=== PATIENT | female | born 1980 | race African-American/Black ===

== ENCOUNTER 2024-07-27 10:50 | Outpatient (CLI) | payer BC, SELFPAY ==
--- OUTSIDE RECORDS SUMMARY | 2024-07-27 11:27 | XMS_ITS | Clinical Summary ---
[facility] Organization [facility] Address [address] [facility] Attn: Epic Prelude ADT RUBENCONNIE CARLTON KANG [address] Care Team Providers Care Spreader Operator Automatic Name Role Phone Unavailable Primary Care Provider Unavailabl e Social History Tobacco Use Types Packs/Day Years Used Date Smoking Tobacco: Never Assessed Comments Unknown Sex and Gender Information Value Date Recorded Sex Assigned at Not on file Legal Sex Female 11:20 PM CDT Gender Identity Not on file Sexual Orientation Not on file Plan of Treatment Health Maintenance Due Date Last Done Comments DTAP/TDAP/TD VACCINES (1 - Tdap) 08/25/1998 HEPATITIS B VACCINES (1 of 3 - 19+ 3-dose series) 08/25/1998 HPV/Cotest (21-29) 08/25/2000 CERVICAL CANCER SCREENING 08/25/2009 HPV/Cotest (30-65) 08/25/2009 PAP SMEAR 08/25/2009 BREAST CANCER SCREENING 2019 INFLUENZA VACCINE (#1) 2023 HPV VACCINES Aged Out No longer eligi ble based on patient's age to complete this topic
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
--- OUTSIDE RECORDS SUMMARY | 2024-07-27 11:27 | XMS_ITS | Referral Summary ---
Author Organization [address] Address [facility] [place] [address] Care Team Providers [facility] [employer] Specialist Name Role Phone Christen Matias MD Unavailable [phone] Curt Zhou MD Primary Care Provider [phone] Encounters Date Type Department Care Team Description 07/22/2024 12:12 AM CDT - 07/22/2024 1:58 AM CDT Emergency [facility] Emergency Department [address] [place] [id number] Vaginal bleeding (Primary Dx); Acute UTI Discharge Disposition: Discharge to home or self care 05/10/2024 Telephone [facility] Allergy and Immunology [address] [place] [phone] Ac Peng 05/10/2024 11:00 AM EMISSIONS ENGINEER Office Visit [facility] Allergy and Immunology [address] [place] [phone] Ari Askew MD PhD Severe persistent asthma, unspecified whether complicated (HCC) (Primary Dx); Chronic urticaria; Angioedema, initial encounter; Allergic rhinitis due to animal hair and dander; Seasonal allergic rhinitis due to pollen; Allergic conjunctivitis of both eyes 05/09/2024 Telephone [facility] Allergy and Immunology [address] [place] [address] [address] [place] [phone] Huong Reveles from Last 3 Months Allergies Active Allergy Reactions Criticality Noted Date Comments Naproxen Swelling,Hives High Reaction: Swelling, Hives, Nsaids (Non-Steroidal Anti-Inflammatory Drug) Other (See comments) Low 05/11/2023 Penicillin Other (See comments) Low 05/11/2023 Penicillins Swelling,Hives High Reaction: Swelling, Hives, Shrimp Hives,Swelling Medium 05/10/2024 Medications ergocalciferol (VITAMIN D) 50,000 unit capsule Take 1 Capsule Every Week Active olopatadine 0.6 % spray,non-aeros ol Active olopatadine (PATADAY) 0.2 % ophthalmic solution Active cetirizine (ZyrTEC) 10 mg tablet Take 2 tablets (20 mg total) by mouth 2 (two) times a day Active famotidine (PEPCID) 40 mg tablet Take 1 tablet (40 mg total) by mouth 2 (two) times a day Active Sunosi 75 mg tablet TAKE 1 TABLET(75 MG) BY MOUTH TWICE DAILY WITH BREAKFAST AND LUNCH 60 tablet Active Additional Information Patient not taking.Reported on 05/10/2024 dextroamphetami ne-amphetamine XR (ADDERALL XR) 30 mg 24 hr capsule Take 1 capsule (30 mg total) by mouth every morning 30 capsule Active Additional Information Patient not taking.Reported on 05/10/2024 Xywav 0.5 gram/mL solutionIndicat ions:Primary narcolepsy without cataplexy Take 4.5 g by mouth 2 (two) times a day 270 mL Active EPINEPHrine (Auvi-Q) 0.3 mg/0.3 mL auto-injection syringeIndicati ons:Anaphylaxis Inject 0.3 mL (0.3 mg total) into the muscle as instructed as needed for anaphylaxis Call 911 after use. 2 each 1 Active fexofenadine (PAPI) 180 mg tablet Take 1 tablet (180 mg total) by mouth daily as needed (allergy symptoms) 30 tablet Active Additional Information Patient not taking.Reported on 05/10/2024 fluticasone propionate (FLONASE) 50 mcg/actuation nasal spray Administer 1 spray into each nostril 2 (two) times a day Active HYDROcodone-sabrina taminophen (NORCO) 5-325 mg per tabletIndicatio ns:Pain Take 1 tablet by mouth every 6 (six) hours as needed Active albuterol 2.5 mg /3 mL (0.083 %) nebulizer solutionIndicat ions:Severe persistent asthma with acute exacerbation (HCC),Severe persistent asthma, unspecified whether complicated (HCC) Take 3 mL (2.5 mg total) by nebulization every 4 (four) hours as needed for wheezing or shortness of breath 75 mL 11 024 2024 Active albuterol HFA (PROVENTIL HFA,VENTOLIN HFA,PROAIR HFA) 90 mcg/actuation inhaler Inhale 2 puffs every 6 (six) hours as needed for wheezing or shortness of breath 1 each 2 024 Active armodafiniL (NUVIGIL) 250 mg tabletIndicatio ns:Type 1 narcolepsy Take 1 tablet (250 mg total) by mouth daily 90 tablet 1 Active montelukast (SINGULAIR) 10 mg tabletIndicatio ns:Severe persistent asthma, unspecified whether complicated (HCC) Take 1 tablet (10 mg total) by mouth nightly 30 tablet 11 Active fluticasone-ume clidin-vilanter (Trelegy Ellipta) 100-62.5-25 mcg inhaler USE 1 INHALATION BY MOUTH DAILY 60 each 024 Active methylphenidate HCl (RITALIN) 20 mg tabletIndicatio ns:Primary narcolepsy without cataplexy Take 1.5 tablets (30 mg total) by mouth daily 45 tablet 025 Active Xolair 150 mg/mL syringeIndicati ons:Chronic urticaria,Sever e persistent asthma, unspecified whether complicated (HCC) INJECT 2 ML (300 MG TOTAL) UNDER THE SKIN EVERY 2 WEEKS 4 mL 9 025 Active cefdinir (OMNICEF) 300 mg capsule Take 1 capsule (300 mg total) by mouth 2 (two) times a day for 5 days 10 capsule 025 2024 Active ketorolac (TORADOL) 10 mg tablet Take 1 tablet (10 mg total) by mouth every 6 (six) hours as needed for pain 20 tablet 025 Active omalizumab (Xolair) 150 mg/mL syringeIndicati ons:Chronic urticaria,Sever e persistent asthma, unspecified whether complicated (HCC) Inject 2 mL (300 mg total) under the skin every 2 (two) weeks 4 mL 11 024 2024 Discontinued ketorolac (TORADOL) 10 mg tablet Take 1 tablet (10 mg total) by mouth every 6 (six) hours as needed for pain 20 tablet 024 2024 Discontinued(T herapy completed) celecoxib (CeleBREX) 200 mg capsule TAKE 1 CAPSULE BY MOUTH TWICE DAILY NEEDED FOR PAIN 024 2024 Discontinued(T herapy completed) methylphenidate HCl (RITALIN) 20 mg tabletIndicatio ns:Primary narcolepsy without cataplexy Take 1.5 tablets (30 mg total) by mouth daily 45 tablet 025 2024 Discontinued(R eorder) Active Problems Problem Noted Date Diagnosed Date Angio-edema 05/11/2023 Chronic urticaria 05/11/2023 UARS (upper airway resistance syndrome) 03/20/19 22 Allergy 04/03/2020 Asthma 04/03/2020 Hives of unknown origin 04/03/2020 Hypothyroidism 04/03/2020 Snoring 04/03/2020 Assessment & Plan (05/20/2023 9:08 AM CDT): The patient does snore and I will check a home sleep test per her request to evaluate for possible underlying JAZMÍN contributing to her daytime hypersomnia. Chest pain 07/23/2013 Overview (06/12/2016): CHEST PAIN NEC Syncope and collapse 07/23/2013 Overview (06/13/2016): SYNCOPE AND COLLAPSE Type 1 narcolepsy 07/23/2013 Overview (06/13/2016): NARCOLEPSY W CATAPLEXY Assessment & Plan (11/18/2023 10:59 AM CDT): The patient has type 1 narcolepsy which is well controlled with XyWav 4.5 g at bedtime and 4.5 g 4 hours later and then she is using Nuvigil 250 mg in the morning and 30 mg of Adderall at noon. She will follow up me annually. Assessment & Plan (05/28/2023 11:12 AM CDT): The patient only had 1 episode of cataplexy about 3 weeks ago when she became very angry. She will continue with Xywav 4.5 g at bedtime and 4.5 g 4 hours later in addition to Ritalin 30 mg at noon. I will stop the Sunosi and switch her to Nuvigil 250 mg p.o. q.a.m.. Assessment & Plan (11/19/2022 8:57 AM CDT): Patient will continue Xywav 4.5 g at bedtime and 4.5 g 4 hours later. The patient will continue with Ritalin 30 mg daily. The patient will continue Sunosi 75 mg in the morning and 75 mg at noon. 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 She continues on Xywav 4.5 g p.o. at bedtime and 2.5 hours later she repeats the 4.5 g dose. She is still using Sunosi 75 mg at 5:00 a.m. when she wakes up and 75 mg at 10:00 a.m.. She also uses Ritalin 30 mg at 1-2 p.m. and is able to function well during the remainder of her shift. She will follow-up with me in 6 months. Assessment & Plan (02/12/2022 2:37 PM EMISSIONS ENGINEER): The patient is no longer having cataplexy attacks. She continues to use his airway 4.5 g 2 times during the night. I will increase her Sunosi to 150 mg in the morning and hopefully, she can go back to taking her Ritalin at noon or 1:00 p.m.. She will follow-up with me in 3 months. Assessment & Plan (09/06/2021 12:10 PM CDT): The patient had been well controlled on XyREM, Nuvigil and Ritalin. She has been having problems with her blood pressure and I will switch her to XyWAV. She will continue on Nuvigil and Ritalin. She will follow-up here in 6 months. Palpitations 07/23/2013 Overview (06/13/2016): PALPITATIONS Obesity, diabetes, and hypertension syndrome 10/2012 Overview (06/13/2016): DYSMETABOLIC SYNDROME X Resolved Problems Problem Noted Date Diagnosed Date Resolved Date JAZMÍN (obstructive sleep apnea) 04/03/2020 11/19/2022 Sleep disorder 07/23/2013 11/19/2022 Overview (06/13/2016): SLEEP STAGE DYSFUNCTIONS Social History Tobacco Use Types Packs/Day Years Used Date Smoking Tobacco: Never Tobacco Cessation:Counseling Given: Not Answered AUDIT-C Answer Date Recorded Frequency of Alcohol Consumption Not on file 05/11/2023 Q2: How many drinks containi ng alcohol do you have on a typical day when you are drinking? Patient does not drink Frequency of Binge Drinking Not on file 06/2023 Personal Safety Answer Date Recorded Have you ever been in or are you currently in a harmful physical or emotional relationship or is someone making you feel afraid or unsafe? Denies 07/21/2024 Comments No Sex and Gender Information Value Date Recorded Sex Assigned at Not on file Legal Sex Female 9:13 AM EMISSIONS ENGINEER Gender Identity Female 05/11/2023 2:20 PM EMISSIONS ENGINEER Sexual Orientation Straight 05/11/2023 2: 20 PM EMISSIONS ENGINEER Last Filed Vital Signs Vital Sign Reading Time Taken Comments Blood Pressure 147/85 07/22/2024 1:41 AM CDT Pulse 59 07/22/2024 1:41 AM CDT Temperature 36.4 C (97.6 F) 07/21/2024 9:32 PM CDT Respiratory Rate 20 07/22/2024 1:41 AM CDT Oxygen Saturation 99% 07/22/2024 1:41 AM CDT Inhaled Oxygen Concentration - - Weight 96.7 kg (213 lb 3 oz) 07/21/2024 9:32 PM CDT Height 165.1 cm (5' 5 ) 05/10/2024 10:58 AM EMISSIONS ENGINEER Body Mass Index 35.48 05/10/2024 10:58 AM EMISSIONS ENGINEER Plan of Treatment Not on file Procedures Procedure Name Priority Date/Time Associated Diagnosis Comments CT ABDOMEN PELVIS W CONTRAST ED 07/21/2024 11:03 PM CDT EGFR STAT 07/21/2024 9:44 PM CDT DIFFERENTIAL AUTO STAT 07/21/2024 9:4 4 PM CDT ANTIBODY SCREEN Timed 07/21/2024 9:44 PM CDT ABO/RH Timed 07/21/2024 9:44 PM CDT TYPE AND SCREEN Timed 07/21/2024 9:44 PM CDT COMPREHENSIVE METABOLIC PANEL STAT 07/21/2024 9:44 PM CDT CBC WITH AUTO DIFFERENTIAL STAT 07/21/2024 9:44 PM CDT URINALYSIS, MICROSCOPIC ONLY STAT 07/21/2024 9:42 PM CDT URINE CULTURE STAT 07/21/2024 9:42 PM CDT URINALYSIS AND REFLEX TO MICROSCOPIC AND CULTURE STAT 07/21/2024 9:42 PM CDT POCT HCG, URINE Routine 07/21/2024 9:41 PM CDT SCREENING MAMMOGRAM BILATERAL W KENNETH Schedule Routine, Read Routine (OP Routine) 07/02/2023 8:39 AM CDT Screening mammogram, encounter for PLASMA LIPID PANEL Routine 03/11/2012 11 :10 AM EMISSIONS ENGINEER from Last 3 Months or Most Recently Relevant to Health Maintenance Results * CT Abdomen Pelvis W Contrast (07/21/2024 11:03 PM CDT) Anatomical Region Laterality Modality Body N/A Computed Tomogra phy 07/21/2024 11:1 7 PM CDT Narrative 07/21/2024 11:22 PM CDT EXAM DESCRIPTION: CT ABDOMEN PELVIS W CONTRAST REASON FOR STUDY: vaginal bleeding Patient reports LMP 06/06/24. Began having vaginal bleeding beginning today. States has used 3 super tampons in five hours. Associated abd cramping. Passing clots. States my tubes are tied, clipped and burnt. TECHNIQUE: CT scan of the abdomen and pelvis performed with intravenous and without oral contrast using helical scanning technique with dynamic intravenous contrast injection. Reconstructed coronal and sagittal MPR images reviewed. All images stored on PACS. Automated exposure control was used as a dose optimization technique for this examination. CONTRAST TYPE/DOSE: 100mL of IOVERSOL 350 MG IODINE/ML INTRAVENOUS SYRINGE injected via intravenous COMPARISON: CT of the abdomen and pelvis of August 28, 2023. FINDINGS: LOWER CHEST: The lung bases are clear. LIVER: The liver is normal in attenuation without focal lesion. GALLBLADDER: Surgically absent. BILE DUCTS: No intrahepatic or extrahepatic ductal dilatation. PANCREAS: Normal. SPLEEN: Normal size. No focal lesions. ADRENALS: Normal. KIDNEYS/URINARY TRACT: There is an 8 mm nonobstructing stone in the midportion of the right kidney. The renal parenchyma appears unremarkable. There is no hydronephrosis or hydroureter. Urinary bladder is unremarkable. VASCULATURE: No acute abnormality seen. No abdominal aortic aneurysm. GI: The stomach appears normal. There is no significant small bowel dilation or visible thickening. No gross colonic abnormalities identified. The appendix is normal. PERITONEUM/MESENTERY: No ascites or free air. LYMPH NODES: There are no enlarged lymph nodes seen by CT size criteria. REPRODUCTIVE: The uterus appears enlarged, not significantly changed as compared to previous study. The endometrium is not well evaluated. No adnexal pathology is seen. MUSCULOSKELETAL: No significant abnormality. OTHER: There is skin thickening and subcutaneous stranding present through out the anterior abdominal wall, decreased as compared to previous study. IMPRESSION: No acute intra-abdominal or pelvic abnormality seen. Enlarged uterus, not significantly changed as compared to previous study, may be secondary to adenomyosis or uterine fibroids. The endometrium is not well evaluated by CT. Consider further evaluation with pelvic ultrasound. 8 mm nonobstructing stone in the midportion of the right kidney. Skin thickening and subcutaneous stranding through out the anterior abdominal wall, decreased as compared to previous study, likely related to postoperative change. This may represent scarring or cellulitis. Recommend clinical correlation for evidence of infection. THIS IS AN ELECTRONICALLY VERIFIED FINAL REPORT 07/21/2024 11:22 PM - Electronically signed by Ana Sanchez M.D. SN: Report ID: [id number] Reading Location: [id number] Procedure Note Ana Sanchez MD - 07/21/2024 EXAM DESCRIPTION: CT ABDOMEN PELVIS W CONTRAST REASON FOR STUDY: vaginal bleeding Patient reports LMP 06/06/24. Began having vaginal bleeding beginningtoday. States has used 3 super tampons in five hours. Associated abd cramping. Passing clots. States my tubes are tied, clipped and burnt. TECHNIQUE: CT scan of the abdomen and pelvis performed with intravenousand without oral contrast using helical scanning technique with dynamic intravenous contrast injection. Reconstructed coronal and sagittal MPRimages reviewed. All images stored on PACS. Automated exposure control was usedas a dose optimization technique for this examination. CONTRAST TYPE/DOSE: 100mL of IOVERSOL 350 MG IODINE/ML INTRAVENOUSSYRINGE injected via intravenous COMPARISON: CT of the abdomen and pelvis of August 28, 2023. FINDINGS: LOWER CHEST: The lung bases are clear. LIVER: The liver is normal in attenuation without focal lesion. GALLBLADDER: Surgically absent. BILE DUCTS: No intrahepatic or extrahepatic ductal dilatation. PANCREAS: Normal. SPLEEN: Normal size. No focal lesions. ADRENALS: Normal. KIDNEYS/URINARY TRACT: There is an 8 mm nonobstructing stone in the midportion of the right kidney. The renal parenchyma appearsunremarkable. There is no hydronephrosis or hydroureter. Urinary bladder isunremarkable. VASCULATURE: No acute abnormality seen. No abdominal aortic aneurysm. GI: The stomach appears normal. There is no significant small bowel dilation or visible thickening. No gross colonic abnormalitiesidentified. The appendix is normal. PERITONEUM/MESENTERY: No ascites or free air. LYMPH NODES: There are no enlarged lymph nodes seen by CT size criteria. REPRODUCTIVE: The uterus appears enlarged, not significantly changed as compared to previous study. The endometrium is not well evaluated. No adnexal pathology is seen. MUSCULOSKELETAL: No significant abnormality. OTHER: There is skin thickening and subcutaneous stranding presentthrough out the anterior abdominal wall, decreased as compared to previous study. IMPRESSION: No acute intra-abdominal or pelvic abnormality seen. Enlarged uterus, not significantly changed as compared to previous study,may be secondary to adenomyosis or uterine fibroids. The endometrium is notwell evaluated by CT. Consider further evaluation with pelvic ultrasound. 8 mm nonobstructing stone in the midportion of the right kidney. Skin thickening and subcutaneous stranding through out the anteriorabdominal wall, decreased as compared to previous study, likely related topostoperative change. This may represent scarring or cellulitis. Recommend clinical correlation for evidence of infection. THIS IS AN ELECTRONICALLY VERIFIED FINAL REPORT 07/21/2024 11:22 PM - Electronically signed by Ana Sanchez M.D. SN: Report ID: [id number] Reading Location: [place] [address] [facility] CT PROCEDURES Final Result * eGFR (07/21/2024 9:44 PM CDT) eGFR 89 >=60 mL/min/1. 73 m2 Comment: Interpretive Data Reference Interval Normal >/= 90 mL/min/1.73m2 Mildly decreased* 60 - 89 mL/min/1.73m2 Mildly to moderately decreased 45 - 59 mL/min/1.73m2 Moderately to severely decreased 30 - 44 mL/min/1.73m2 Severely decreased 15 - 29 mL/min/1.73m2 Kidney Failure < 15 mL/min/1.73m2 *Relative to young adult level Estimated glomerular filtration rate is determined by the 2020 CKD-EPI equation recommended by the National Kid[employer] (A Unifying Approach to GFR Estimation: Recommendations of the NKF-ASK Task Force on Reassessing the Inclusion of Race in Diagnosing Kidney Disease, JASN 2020). The CKD-EPI equation should not be used for patients with unstable renal function and has not been validated in children and those over 70. Current interpretive data was last reviewed 2021. Testing performed by: [address] [address] Blood 07/21/2024 9:44 PM CDT 07/21/2024 9:46 PM CDT us Johnnie Hassan DO LAB BLOOD ORDERABLES F inal Result [facility] [place] [address] * Differential, auto (07/21/2024 9:44 PM CDT) Neutrophil abs 4.33 1.50 - 6.50 K/cumm Comment:Testing performed by : [address] [address] Imm gran abs 0.03 0.00 - 0.10 K/cumm [facility] Comment:Testing performed by : [address] [address] Lymphocyte abs 2.32 0.80 - 3.30 K/cumm [facility] Comment:Testing performed by : [address] [address] Monocyte abs 0.65 0.20 - 0.80 K/cumm [facility] Comment:Testing performed by : [address] [address] Eosinophil abs 0.18 0.00 - 0.50 K/cumm [facility] Comment:Testing performed by : [address] [address] Basophil abs 0.05 0.00 - 0.10 K/cumm [facility] Comment:Testing performed by : [address] [address] Neutrophil pct 57.2 % [facility] Comment: Interpretive Data Percent cell count reference ranges are not reported, since discordance with absolute values may lead to misinterpretation of CBC data. Current Interpretive Data was last revised on 2017. Testing performed by: [address] [address] Imm gran pct 0.4 % [facility] Comment: Interpretive Data Percent cell count reference ranges are not reported, since discordance with absolute values may lead to misinterpretation of CBC data. Current Interpretive Data was last revised on 2017. Testing performed by: [address] [address] Lymphocyte pct 30.7 % [facility] Comment: Interpretive Data Percent cell count reference ranges are not reported, since discordance with absolute values may lead to misinterpretation of CBC data. Current Interpretive Data was last revised on 2017. Testing performed by: [address] [address] Monocyte pct 8.6 % [facility] Comment: Interpretive Data Percent cell count reference ranges are not reported, since discordance with absolute values may lead to misinterpretation of CBC data. Current Interpretive Data was last revised on 2017. Testing performed by: [address] [address] Eosinophil pct 2.4 % [facility] Comment: Interpretive Data Percent cell count reference ranges are not reported, since discordance with absolute values may lead to misinterpretation of CBC data. Current Interpretive Data was last revised on 2017. Testing performed by: [address] [address] Basophil pct 0.7 % [facility] Comment: Interpretive Data Percent cell count reference ranges are not reported, since discordance with absolute values may lead to misinterpretation of CBC data. Current Interpretive Data was last revised on 2017. Testing performed by: [address] [address] Blood 07/21/2024 9:44 PM CDT 07/21/2024 9:46 PM CDT us Johnnie Hassan DO LAB BLOOD ORDERABLES F inal Result [facility] [address] [facility] [place] [address] * CBC with auto differential (07/21/2024 9:44 PM CDT) WBC 7.56 3.80 - 9.90 K/cumm Comment:Testing performed by : [address] [address] Hgb 13.1 11.9 - 15.5 g/dL [facility] Comment:Testing performed by : [address] [address] Hct 38.3 35.6 - 45.5 % [facility] Comment:Testing performed by : [address] [address] Plt 257 150 - 400 K/cumm [facility] Comment:Testing performed by : [address] [address] MPV 9.8 9.1 - 12.3 fL [facility] Comment:Testing performed by : [address] [address] RBC 4.43 3.90 - 5.20 M/cumm [facility] Comment:Testing performed by : [address] [address] MCV 86.5 81.3 - 96.4 fL [facility] Comment:Testing performed by : [address] [address] MCH 29.6 27.1 - 33.3 pg [facility] Comment:Testing performed by : [address] [address] MCHC 34.2 32.3 - 35.7 g/dL [facility] Comment:Testing performed by : [address] [address] RDW CV 13.4 11.1 - 14.9 % [facility] Comment:Testing performed by : [address] [address] RDW SD 42.1 35.7 - 48.1 fL [facility] Comment:Testing performed by : [address] [address] NRBC abs 0.00 0.00 - 0.01 K/cumm [facility] Comment:Testing performed by : [address] [address] Blood 07/21/2024 9:44 PM CDT 07/21/2024 9:46 PM CDT [facility] F inal Result Performing Organization Address [facility] [address]/[facility] Co de Phone Number [address] [place] [address] * ABO/Rh (07/21/2024 9:44 PM CDT) ABO/Rh A Positive Comment:Testing performed by : [address], [address] Blood 07/21/2024 9:44 PM CDT 07/21/2024 9:46 PM CDT Narrative [facility] - 07/21/2024 10:50 PM CDT Has the patient had Daratumumab or Isatuximab in the past 6 months?->Unknown Johnnietaniya [facility]St[facility] BLOOD B[facility] TEST OR DERABLES Final Result Performing Organization Address [facility] [address]/[facility] Co de Phone Number [address] [place], [place] [id number] * Antibody screen (07/21/2024 9:44 PM CDT) Freida, indirect, Gel Interpretation Negative [facility] Comment:Testing performed by : [address] [address] Blood 07/21/2024 9:44 PM CDT 07/21/2024 9:46 PM CDT Narrative [facility] - 07/21/2024 10:50 PM CDT Has the patient had Daratumumab or Isatuximab in the past 6 months?->Unknown Johnnie Hassan DO LAB BLOOD BANK TEST OR DERABLES Final Result [facility] [address] [facility] Department [place] [address] * Comprehensive metabolic panel (07/21/2024 9:44 PM CDT) Sodium 140 135 - 145 mmol/L Comment:Testing performed by : [address] [address] Potassium, pl 3.6 3.3 - 4.9 mmol/L [facility] Comment:Testing performed by : [address] [address] Chloride 104 97 - 110 mmol/L [facility] Comment:Testing performed by : [address] [address] CO2 24 22 - 32 mmol/L [facility] Comment:Testing performed by : [address] [address] Anion gap 12 2 - 15 mmol/L [facility] Comment:Testing performed by : [address] [address] BUN 10 6 - 25 mg/dL [facility] Comment:Testing performed by : [address] [address] Creatinine 0.83 0.60 - 1.10 mg/dL [facility] Comment:Testing performed by : [address] [address] Glucose 110 70 - 199 mg/dL [facility] Comment: Interpretive Data Fasting glucose >/= 126 mg/dl is diagnostic for diabetes. Fasting is defined as no caloric intake for at least 8 hours. Fasting glucose between 100 mg/dl to 125 mg/dl is diagnostic of prediabetes. In a patient with classic symptoms of hyperglycemia or hyperglycemic crisis, a random glucose >/= 200 mg/dl is diagnostic for diabetes. In the absence of unequivocal hyperglycemia, results should be confirmed by repeat testing. The classification and Diagnosis of Diabetes Diabetes Care 202; 46: S19-S40. Current interpretive data was last revised 2022. Testing performed by: [facility], [address] [place] [address]., [address] Calcium 9.5 8.5 - 10.3 mg/dL [facility] Comment:Testing performed by : [address] [address] Bilirubin, total 0.3 0.1 - 1.2 mg/dL [facility] Comment:Testing performed by : [address] [address] Protein, pl 7.5 6.5 - 8.5 g/dL [facility] Comment:Testing performed by : [address] [address] Albumin 4.4 3.5 - 5.0 g/dL [facility] Comment:Testing performed by : [address] [address] Alk phos 63 40 - 130 Units/L [facility] Comment:Testing performed by : [address] [address] ALT 20 7 - 45 Units/L [facility] Comment:Testing performed by : [address] [address] AST 13 10 - 45 Units/L [facility] Comment:Testing performed by : [address] [address] Blood 07/21/2024 9:44 PM CDT 07/21/2024 9:46 PM CDT us Johnnie Hassan DO LAB BLOOD ORDERABLES F inal Result [facility] [address] [facility] [place] [address] * (ABNORMAL) Urinalysis reflex to microscopic and culture Urine, bladder (07/21/2024 9:42 PM CDT) Color, ur Red(A) Yellow Comment:Testing performed by : [address] [address] Clarity, ur Turbid(A) Clear [facility] Comment:Testing performed by : [address], [place]., [address] Specific gravity, ur 1.020 1.003 - 1.030 [facility] Comment:Testing performed by : [address] [address] pH, urine 7.0 [facility] Comment: Interpretive Data U rine pH is affected by diet, medications, systemic acid-base disturbances, and renal tubular function. pH may affect urinary stone formation. For example, urine pH below 6.0 may help reduce the tendency for calcium phosphate stones and pH greater than 6.0 may reduce the tendency for uric acid stone formation. Source: [facility] Current Interpretive Data was last revised on 2017 Testing performed by: [address] [address] Protein, ur ql 2+(A) Negative [facility] Comment:Testing performed by : [address] [address] Glucose, ur ql Negative Negative [facility] Comment:Testing performed by : [address] [address] Ketones, ur Negative Negative [facility] Comment:Testing performed by : [address] [address] Bilirubin, ur Negative Negative [facility] Comment:Testing performed by : [address] [address] Blood, ur 3+(A) Negative [facility] Comment:Testing performed by : [address] [address] Urobilinogen, ur <2.0 <2.0 mg/dL [facility] Comment:Testing performed by : [address] [address] Nitrite, ur Negative Negative [facility] Comment:Testing performed by : [address] [address] Leukocyte esterase, ur 3+(A) Negative [facility] Comment:Testing performed by : [address] [address] UA reflex comment Reflex to microscopic UA will be performed. [facility] Comment:Testing performed by : [address] [address] Urine, bladder 07/21/2024 9: 42 PM CDT 07/21/2024 9:47 PM CDT Johnnie Hassan LAB MICROBIOLOGY - GEN ERAL ORDERABLES Final Result Performing Organization Address [facility] Co de Phone Number [facility] [address] [place] [address] * (ABNORMAL) Urinalysis, microscopic only (07/21/2024 9:42 PM CDT) WBC, ur >50(A) 0 - 5 /HPF Comment:Testing performed by : [address] [address] RBC, ur >50(A) 0 - 2 /HPF [facility] Comment:Testing performed by : [address] [address] Epithelial cells, squamous, ur >50(A) 0 - 5 /HPF [facility] Comment:Testing performed by : [address] [address] Bacteria, ur Trace(A) [facility] Comment:Testing performed by : [address] [address] Culture Reflex Comment Reflex to urine culture will be performed. [facility] Comment:Testing performed by : [address] [address] Urine, bladder 07/21/2024 9: 42 PM CDT 07/21/2024 9:47 PM CDT Johnnie Hassan [facility] URINE ORDERABLES F inal Result Performing Organization Address [facility] [address] [facility] Co de Phone Number [id number] [place] [address] * Urine culture Urine, bladder (07/21/2024 9:42 PM CDT) Report Final Report: Less than 100,000 colonies/mL (clinically insignificant growth based on current clinical standards) Comment:Testing performed by : [facility], [address] [facility], [place]., [address] Organism (CLINICALLY INSIGNIFICANT GROWTH [facility] Urine, bladder 07/21/2024 9: 42 PM CDT 07/22/2024 1:53 AM CDT Narrative [facility] - 07/24/2024 12:19 PM CDT Urine culture reflexed based upon urinalysis results. Testing performed by [facility] Microbiology Laboratory ([phone]) Johnnie Hassan DO LAB MICROBIOLOGY - GEN ERAL ORDERABLES Final Result [facility] [address] [facility] [place] [address] * POCT hCG, urine (07/21/2024 9:41 PM CDT) HCG, ur, POC Negative Negative Lot Number [id number] QC Backgroud Clear Acceptable QC Control Line Acceptable Urine 07/21/2024 9:41 PM CDT Johnnie Hassan DO POINT OF CARE TEST ORD ERABLES Final Result * (ABNORMAL) Screening Mammogram Bilateral W Kenneth (07/02/2023 8:39 AM CDT) Anatomical Region Laterality Modality Breast Bilateral Mammography Impressions 07/02/2023 8:59 AM CDT BI-RADS ATLAS category (overall): 0 - Incomplete: Needs Additional Imaging Evaluation There is a small asymmetry in the lower inner right breast at posterior depth on CC view, which is not definitely seen on MLO view. Further evaluation with right unilateral diagnostic mammogram and possible sonogram is recommended. No suspicious findings are identified in the left breast on mammogram. The patient has been or will be contacted. Narrative 07/02/2023 8:59 AM CDT Screening Mammogram Bilateral W Kenneth: 07/02/23 The study was acquired using full field digital technology and interpreted from soft copy. 2D digital mammographic views, as well as 3D digital tomosynthesis were performed in the CC and MLO projections. CLINICAL: Screening mammogram, encounter for. No relevant medical history has been documented for this patient. No known family history of breast cancer. COMPARISON: Baseline Screening Mammography. No prior mammography is available for comparison. BREAST TISSUE: The breasts are heterogeneously dense, which may obscure small masses. FINDINGS: There is a small asymmetry in the lower inner right breast at posterior depth on CC view, which is not definitely seen on MLO view. No suspicious findings are identified in the left breast on mammogram. Self Screening Mammogram IMG MAMMO PROCEDURES Fi nal Result * Plasma lipid panel (03/11/2012 11:10 AM EMISSIONS ENGINEER) Cholesterol 178 100 - 200 mg/dl HISTORICAL RESULTS Triglycerides 85 10 - 150 mg/dl HISTORICAL RESULTS HDL 51 40 - 59 mg/dl HISTORICAL RESULTS LDL 110 60 - 129 mg/dl HISTORICAL RESULTS Plasma 03/11/2012 11:1 0 AM EMISSIONS ENGINEER Jose Newman MD LAB BLOOD ORDERABLES Final Resul t HISTORICAL RESULTS from Last 3 Months or Most Recently Relevant to Health Maintenance Insurance [facility] PPO [place] Care Teams Diabetes [employer] Specialist Relationship Specialty Start Date End Date Curt Zhou MD [address] [id number] PCP - General Internal Medicine 7/1/22 Christen Matias MD [address] [place] [address] Referring Physician Allergy and Immunology 09/22/19
--- OUTSIDE RECORDS SUMMARY | 2024-07-27 11:27 | XMS_ITS | Encounter Summary ---
Author Organization [facility] Address [address] [place] [address] Phone Care Team Providers Care Mathematics Faculty Member Name Role Phone Christen Matias MD Unavailable [phone] Curt Zhou MD Primary Care Provider [phone] Reason for Referral * Procedure (Routine) - Closed Specialty Diagnoses / Procedures Referred By Coy moreno Referred To Contact Diagnoses Severe persistent asthma, unspecified whether complicated (HCC) Chronic urticaria Angioedema, initial encounter Procedures Pulmonary Function Test -[facility] Adult P[facility]; Standard; Spirometry, Spirometry w/bronchodilator, DLCO and Lung Volumes Ari Askew MD PhD [address] [place] [address] Phone: tel: fax: Referral ID Status Reason Start Date Expiration Date Visits Re quested Visits Authorized [id number] Closed 05/11/2023 06/09/2024 1 1 SOLE LAYER Reason for Visit * Procedure (Routine) - Closed Specialty Diagnoses / Procedures Referred By Coy moreno Referred To Contact Diagnoses Severe persistent asthma, unspecified whether complicated (HCC) Chronic urticaria Angioedema, initial encounter Procedures Pulmonary Function Test -[facility]; Standard; Spirometry, Spirometry w/bronchodilator, DLCO and Lung Volumes Ari Askew MD PhD [address] [place] [address] Phone: tel: fax: Referral ID Status Reason Start Date Expiration Date Visits Re quested Visits Authorized [id number] Closed 05/11/2023 06/09/2024 1 1 Encounter Details Date Type Department Care Team (Latest Contact Info) Description 05/11/2023 11:30 AM WELT SOLE LAYER Hospital Encounter [facility] PFT Lab [address] [facility] [address] [place] [id number] Severe persistent asthma, unspecified whether complicated (HCC); Chronic urticaria; Angioedema, initial encounter Social History Tobacco Use Types Packs/Day Years Used Date Smoking Tobacco: Never AUDIT-C Answer Date Recorded Frequency of Alcohol [...] on file Legal Sex Female 9:13 AM WELT SOLE LAYER Gender Identity Female 05/11/2023 2:20 PM WELT SOLE LAYER Sexual Orientation Straight 05/11/2023 2: 20 PM WELT SOLE LAYER documented as of this encounter Functional Status documented as of this encounter Plan of Treatment Not on file documented as of this encounter Procedures Procedure Name Priority Date/Time Associated Diagnosis Comments PULMONARY FUNCTION TEST (PFT) Routine 05/11/2023 12:18 PM WELT SOLE LAYER Severe persistent asthma, unspecified whether complicated (HCC) Chronic urticaria Angioedema, initial encounter documented in this encounter Results * Pulmonary Function Test - (05/11/2023 12:18 PM WELT SOLE LAYER) FVC PRE 3.04 L [facility] FVC %PRE PRED 95 % [facility] FVC POST 2.88 L [facility] FVC %POST PRED 90 % [facility] FEV1 PRE 2.63 L [facility] FEV1 %PRE PRED 100 % [facility] FEV1 POST 2.59 L [facility] FEV1 %POST PRED 99 % [facility] FEV1/FVC PRE 86.5 % [facility] FEV1/FVC POST 89.9 % [facility] FRC PL PRE 2.07 L [facility] FRC PL %PRE PRED 71 % [facility] RV PRE 1.49 L [facility] RV %PRE PRED 86 % [facility] TLC PRE 4.50 L [facility] TLC %PRE PRED 86 % [facility] DLCO PRE 21.2 ml/min/mmH g [facility] DLCO %PRE PRED 97 % [facility] Anatomical Region Laterality Modality PFT 05/11/2023 11:3 2 AM WELT SOLE LAYER Impressions 05/11/2023 1:13 PM WELT SOLE LAYER There is no ventilatory defect. There is no impairment of alveolar gas exchange by DLCO. Gonzalo Hernandez MD The attending pulmonary physician certifies a physician presence in the [facility] Suite during the administration of aerosolized bronchodilator. The attending pulmonary physician certifies that he/she has reviewed and interpreted the graphic and numerical data of this pulmonary function study and agrees with the written final report. The lower limit of normal for PO2 and %HbO2 is age dependent. However, the [facility] Pulmonary Function Laboratory defines hypoxemia as a PO2 <55 or a %HbO2 <89. Narrative 05/11/2023 1:13 PM WELT SOLE LAYER PFT performed at:->[facility] Adult PFT [facility] Procedure:->Standard Standard:->Spirometry, Spirometry w/bronchodilator, DLCO and Lung Volumes Pulmonary Function Test Interpretation SPIROMETRY: The flow-volume curve is normal. The FEVI and FVC are normal. The FEVI to FVC ratio is normal. There is no significant improvement after inhaling a single nebulized dose of albuterol. LUNG VOLUMES: TLC measured by plethysmography is normal. Overweight status may be the cause of the decreased ERV. DIFFUSING CAPACITY: The diffusing capacity is normal. Note that the value for diffusing capacity is not corrected for hemoglobin and that anemia may decrease the reported value. us Ari Askew MD PhD PFT ORDERABLE S Final Result documented in this encounter Visit Diagnoses Diagnosis Severe persistent asthma, unspecified whether complicated (HCC) Chronic urticaria Other specified urticaria Angioedema, initial encounter documented in this encounter Additional Health Concerns Infection Onset Date Last Indicated Resolved Time COVID: Suspected 11/24/2023 11/24/2023 11/24/2023 5:47 PM CDT documented as of this encounter Care Teams Mathematics Faculty Member Relationship Specialty Start Date End Date Curt Zhou MD [address] [address] [facility] [address] [place] [address] PCP - General Internal Medicine 09/06/21 Christen Matias MD [address] [facility] [address] [place] [address] Referring Physician Allergy and Immunology 09/22/19 documented as of this encounter
--- OUTSIDE RECORDS SUMMARY | 2024-07-27 11:27 | XMS_ITS | Clinical Summary ---
Author Organization [facility] Address [address] [place] [address] Phone Care Team Providers Care Fitter Placer Name Role Phone Unavailable Primary Care Provider Unavailabl e Social History Tobacco Use Types Packs/Day Years Used Date Smoking Tobacco: Never Assessed Comments Unknown Sex and Gender Information Value Date Recorded Sex Assigned at Not on file Legal Sex Female 10:10 AM CDT Gender Identity Not on file Sexual Orientation Not on file Plan of Treatment Not on file
--- OUTSIDE RECORDS SUMMARY | 2024-07-27 11:27 | XMS_ITS | Clinical Summary ---
Author Organization [facility] Address [address] [place] [address] Care Team Providers Care Shaper Setter Name Role Phone Unavailable Primary Care Provider Unavailabl e Source Comments [facility],non-owned Affiliates and Associated Physician Practices is amultiple site organization consisting of ambulatory clinics and hospital sitesin [place], [place], [place] and [place]. This disclosure is being madepursuant to the Care Everywhere program and may not contain all information available regarding this patient. Last updated 17.[facility] Allergies Active Allergy Reactions Criticality Noted Date Comments Naproxen Urticaria,Swelling High 03/14/2021 Reaction: Swelling, Hives, Penicillins Urticaria,Swelling High 03/14/2021 Reaction: Swelling, Hives, Shellfish-Derived Products Swelling 02/18/2021 Medications * Be aware that medications may not be up to date on this document. Alwaysverify current medications with the patient. montelukast (SINGULAIR) 10 MG tablet TK 1 T PO ONCE D 06/22/2019 Active XOLAIR injection 03/30/2020 Ac tive predniSONE (DELTASONE) 20 MG tablet TK 4 TS PO QD FOR 5 DAYS 12/20/2019 Active fluticasone-huma nterol (BREO ELLIPTA) 200-25 MCG/INH inhaler Inhale 1 puff by mouth once daily Active Tiotropium Humbird Monohydrate (SPIRIVA HANDIHALER IN) Activ e albuterol HFA (PROVENTIL;ANNETTE JOSH;PROAIR) 108 (90 Base) MCG/ACT inhaler Inhale 2 puffs by mouth every 6 hours as needed Active Cholecalciferol (VITAMIN D3) 1.25 MG (60728 UT) capsule Take 50,000 Units by mouth every 7 days Active XYREM 500 MG/ML Take 9 mL by mouth 2 times daily 4.5 gm at bed time and 4.5 gm 2-5-4 hours later. 540 mL 5 01/04/2021 Active olopatadine (PATANASE) 0.6 % nasal solution 10/10/2020 Acti ve benzonatate (TESSALON) 200 MG capsule Take 200 mg by mouth 3 times daily as needed 02/18/2021 Active armodafinil (NUVIGIL) 250 MG tablet Take 1 (one) tablet by mouth every morning 30 tablet 1 07/30/2021 Active NUVIGIL 250 MG tablet Take 1 (one) tablet by mouth every morning 30 tablet 5 07/31/2021 Active methylphenidate (RITALIN) 20 MG tablet Patient takes 1 and 1/2 tablets at noon =30 mg at noon 45 tablet 08/22/2021 Active Active Problems Problem Noted Date Diagnosed Date UARS (upper airway resistance syndrome) 03/20/19 22 Hives of unknown origin 04/03/2020 Primary narcolepsy with cataplexy 04/03/2020 Asthma 04/03/2020 Hypothyroidism 04/03/2020 Allergy 04/03/2020 Class 2 obesity due to exces s calories without serious comorbidity with body mass index (BMI) of 37.0 to 37.9 in adult 04/03/2020 Snoring 04/03/2020 JAZMÍN (obstructive sleep apnea) 04/03/2020 Hypersomnia 04/03/2020 Social History Tobacco Use Types Packs/Day Years Used Date Smoking Tobacco: Never Smokeless Tobacco: Never Tobacco Cessation:Counseling Given: Yes Comments Unknown Sex and Gender Information Value Date Recorded Sex Assigned at Female 03/19/2021 9:37 AM MATERIALS ENGINEERING TECHNICIAN Legal Sex Female 6:07 AM MATERIALS ENGINEERING TECHNICIAN Gender Identity Female 03/19/2021 9:37 AM MATERIALS ENGINEERING TECHNICIAN Sexual Orientation Straight 03/19/2021 9: 37 AM MATERIALS ENGINEERING TECHNICIAN Last Filed Vital Signs Vital Sign Reading Time Taken Comments Blood Pressure 140/74 08/14/2020 2:02 PM CDT Pulse 111 08/14/2020 2:02 PM CDT Temperature 36.8 C (98.2 F) 08/14/2020 2:02 PM CDT Respiratory Rate - - Oxygen Saturation 98% 08/14/2020 2:02 PM CDT Inhaled Oxygen Concentration - - Weight 102.7 kg (226 lb 6 oz) 08/14/2020 2:02 PM CDT Height 165.1 cm (5' 5 ) 03/20/2021 8:42 AM MATERIALS ENGINEERING TECHNICIAN Body Mass Index 37.67 08/14/2020 2:02 PM CDT Plan of Treatment Health Maintenance Due Date Last Done Comments LIPID TESTING 1979 MAMMOGRAM 1979 PAP SMEAR 1979 DTAP/TDAP/TD VACCINES (1 - Tdap) 08/25/1998 HEPATITIS B VACCINE (1 of 3 - 19+ 3-dose series) 08/25/1998 PNEUMOCOCCAL VACCINE (1 of 2 - PCV) 08/25/1998 SCREENING FOR DIABETES 04/03/2020 COVID-19 VACCINE (1 - 2023-2 5 season) 2023 DEPRESSION SCREENING 03/09/2024 INFLUENZA VACCINE (Season Ended) 2024 ZOSTER VACCINE (1 of 2) 08/25/2029 HEPATITIS C SCREENING Completed 04/13/2018 , 04/13/2018 HIV SCREENING Completed 04/13/2018 HIB VACCINE Aged Out No longer eligi ble based on patient's age to complete this topic HPV VACCINE Aged Out No longer eligi ble based on patient's age to complete this topic MENINGOCOCCAL (Group B) VACCINE SHARED DECISION-MAKING Aged Out No longer eligible based on patient's age to complete this topic MENINGOCOCCAL GROUPS A/C/Y/W VACCINE Aged Out No longer eligible b ased on patient's age to complete this topic Insurance MEDICA [facility]
--- OUTSIDE RECORDS SUMMARY | 2024-07-27 11:27 | XMS_ITS | Encounter Summary ---
Author Organization [facility] Address [address] [place] [address] Care Team Providers Care Casing Grader Name Role Phone Unavailable Primary Care Provider Unavailabl e Encounter Details Date Type Department Care Team (Late st Contact Info) Description 04/13/2018 Lab Requisition [facility] [place] [address] [place] [address] Sebast[place]án [place] [address] [facility] [address] [place] [address] Contact with and (suspected) exposure to potentially hazardous body fluids Social History Tobacco Use Types Packs/Day Years Used Date Smoking Tobacco: Never Assessed Comments Unknown Sex and Gender Information Value Date Recorded Sex Assigned at Not on file Legal Sex Female 11:20 PM CDT Gender Identity Not on file Sexual Orientation Not on file documented as of this encounter Plan of Treatment Not on file documented as of this encounter Procedures Procedure Name Priority Date/Time Associated Diagnosis Comments HIV DETECTION W/REFLX CONFIRMATION Routine 04/13/2018 8:10 AM ANALYTICAL STATISTICIAN Contact with and (suspected) exposure to potentially hazardous body fluids HEPATITIS C RNA PCR, QUANTITATIVE Routine 04/13/2018 8:10 AM ANALYTICAL STATISTICIAN Contact with and (suspected) exposure to potentially hazardous body fluids HEPATITIS B SURFACE ANTIGEN Routine 04/13/2018 8:10 AM ANALYTICAL STATISTICIAN Contact with and (suspected) exposure to potentially hazardous body fluids documented in this encounter Results * HEPATITIS C RNA PCR, QUANTITATIVE (04/13/2018 8:10 AM ANALYTICAL STATISTICIAN) HEPATITIS C RNA PCR NOT DETECTED Not detected 04/14/2018 3:57 PM ANALYTICAL STATISTICIAN [facility] [employer] [facility] Blood Collection / Unknown 04/13/2018 8:10 AM ANALYTICAL STATISTICIAN 04/13/2018 10:18 AM ANALYTICAL STATISTICIAN [facility] [employer] [facility] - 04/14/2018 3:57 PM ANALYTICAL STATISTICIAN The quantification range of this assay is 10 to 10,000,000 IU/mL (1.00 log to 8.00 log IU/mL). Testing was performed using the Aptima HCV RNA Assay ([employer]) with the Therio System. Sebastián Alfaro MD CHEMISTRY ORDERABLES Final R esult Performing Organization Address [facility] Co de Phone Number [facility] CLIA# [id number] [address] [place] [address] * HIV DETECTION W/REFLX CONFIRMATION (04/13/2018 8:10 AM ANALYTICAL STATISTICIAN) HIV-1 AND 2 ABS AND HIV-1 AG Non-reacti ve Non-reacti ve 04/13/2018 6:03 PM [facility] [employer] [facility] Blood Collection / Unknown 04/13/2018 8:10 AM ANALYTICAL STATISTICIAN 04/13/2018 10:18 AM ANALYTICAL STATISTICIAN [facility] [employer] [facility] - 04/13/2018 6:03 PM ANALYTICAL STATISTICIAN Non-Reactive results does not rule out HIV infection. If acute HIV-1 infection is suspected, submit plasma specimen for HIV-1 RNA quantification test (HIVQU). Sebastián Alfaro MD CHEMISTRY ORDERABLES Final R esult Performing Organization Address [facility] Co de Phone Number [facility] [employer] [facility] CLIA# [id number] [address] [place] [address] * HEPATITIS B SURFACE ANTIGEN (04/13/2018 8:10 AM ANALYTICAL STATISTICIAN) HEPATITIS B SURFACE AG NON-REACTI VE Non-reacti ve 04/13/2018 11:41 AM [facility] [employer] [facility] Blood Collection / Unknown 04/13/2018 8:10 AM ANALYTICAL STATISTICIAN 04/13/2018 10:18 AM ANALYTICAL STATISTICIAN us Sebastián Alfaro MD CHEMISTRY ORDERABLES Final R esult Performing Organization Address [facility] Co de Phone Number [facility]# [id number] [address] [place] [address] documented in this encounter Visit Diagnoses Diagnosis Contact with and (suspected) exposure to potentially hazardous body fluids Personal history of contact with and (suspected) exposure to potentially hazardous body fluids documented in this encounter
--- OUTSIDE RECORDS SUMMARY | 2024-07-27 11:27 | XMS_ITS | Clinical Summary ---
Author Organization [address] Address [facility] [place] [address] Care Team Providers Care Vp Treasurer Name Role Phone Christen Matias MD Unavailable Curt Zhou MD Primary Care Provider [phone] Allergies Active Allergy Reactions Criticality Noted Date Comments Naproxen Swelling,Hives High Reaction: Swelling, Hives, Nsaids (Non-Steroidal Anti-Inflammatory Drug) Other (See comments) Low 05/11/2023 Penicillin Other (See comments) Low 05/11/2023 Penicillins Swelling,Hives High Reaction: Swelling, Hives, Shrimp Hives,Swelling Medium 05/10/2024 Medications ergocalciferol (VITAMIN D) 50,000 unit capsule Take 1 Capsule Every Week 018 Active olopatadine 0.6 % spray,non-aeros ol 021 Active olopatadine (PATADAY) 0.2 % ophthalmic solution [...] DAILY WITH BREAKFAST AND LUNCH 60 tablet 1 Active Additional Information Patient not taking.Reported on 05/10/2024 dextroamphetami ne-amphetamine XR (ADDERALL XR) 30 mg 24 hr capsule Take 1 capsule (30 mg total) by mouth every morning 30 capsule Active Additional Information Patient not taking.Reported on 05/10/2024 Xywav 0.5 gram/mL solutionIndicat ions:Primary narcolepsy without cataplexy Take 4.5 g by mouth 2 (two) times a day 270 mL 3 Active EPINEPHrine (Auvi-Q) 0.3 mg/0.3 mL auto-injection syringeIndicati ons:Anaphylaxis Inject 0.3 mL (0.3 mg total) into the muscle as instructed as needed for anaphylaxis Call 911 after use. 2 each 1 Active fexofenadine (PAPI) 180 mg tablet Take 1 tablet (180 mg total) by mouth daily as needed (allergy symptoms) 30 tablet 11 Active Additional Information Patient not taking.Reported on [...] or shortness of breath 1 each 2 Active armodafiniL (NUVIGIL) 250 mg tabletIndicatio ns:Type 1 narcolepsy Take 1 tablet (250 mg total) by mouth daily 90 tablet 1 Active montelukast (SINGULAIR) 10 mg tabletIndicatio ns:Severe persistent asthma, unspecified whether complicated (HCC) Take 1 tablet (10 mg total) by mouth nightly 30 tablet 11 Active fluticasone-ume clidin-vilanter (Trelegy Ellipta) 100-62.5-25 mcg inhaler USE 1 INHALATION BY MOUTH DAILY 60 each Active methylphenidate HCl (RITALIN) 20 mg tabletIndicatio ns:Primary narcolepsy without cataplexy Take 1.5 tablets (30 mg total) by mouth daily 45 tablet Active Xolair 150 mg/mL syringeIndicati ons:Chronic urticaria,Sever e persistent asthma, unspecified whether complicated (HCC) INJECT 2 ML (300 MG TOTAL) UNDER THE SKIN EVERY 2 WEEKS 4 mL 9 Active cefdinir (OMNICEF) 300 mg capsule Take 1 capsule (300 mg total) by mouth 2 (two) times a day for 5 days 10 capsule 025 2024 Active ketorolac (TORADOL) 10 mg tablet Take 1 tablet (10 mg total) by mouth every 6 (six) hours as needed for pain 20 tablet Active omalizumab (Xolair) 150 mg/mL syringeIndicati ons:Chronic urticaria,Sever e persistent asthma, unspecified whether complicated (HCC) Inject 2 mL (300 mg total) under the skin every 2 (two) weeks 4 mL 2024 Discontinued ketorolac (TORADOL) 10 mg tablet Take 1 tablet (10 mg total) by mouth every 6 (six) hours as needed for pain 20 tablet 024 2024 Discontinued(T herapy completed) celecoxib (CeleBREX) 200 mg capsule TAKE 1 CAPSULE BY MOUTH TWICE DAILY NEEDED FOR PAIN 2024 Discontinued(T herapy completed) methylphenidate HCl (RITALIN) [...] noon. Assessment & Plan (05/14/2022 10:01 AM BOX ORDER PERSON): The patient currently is doing well while [...] months. Assessment & Plan (02/12/2022 2:37 PM BOX ORDER PERSON): The patient is no longer having cataplexy [...] 07/23/2013 11/19/2022 Overview (06/13/2016): SLEEP STAGE DYSFUNCTIONS Encounters Date Type Department Care Team Description 07/22/2024 12:12 AM CDT - 07/22/2024 1:58 AM CDT Emergency [facility] Emergency Department [address] [place] [id number] Vaginal bleeding (Primary Dx); Acute UTI Discharge Disposition: Discharge to home or self care 05/10/2024 11:00 AM BOX ORDER PERSON Office Visit [facility] [address] [place] [address] Ari Askew MD PhD Severe persistent asthma, unspecified whether complicated (HCC) (Primary Dx); Chronic urticaria; Angioedema, initial encounter; Allergic rhinitis due to animal hair and dander; Seasonal allergic rhinitis due to pollen; Allergic conjunctivitis of both eyes 05/10/2024 Telephone [facility] [address] [place] [address] Ac Peng 05/09/2024 Telephone [facility] [address] [place] [address] Huong Reveles from Last 3 Months Surgical History Surgery Date Site/Laterality Comments OTHER SURGICAL HISTORY Narcolepsy followed by Dr. Duncan: OTHER SURGICAL HISTORY removal of lymph nodes 9 y.o. CHOLECYSTECTOMY 1997 Cholecystectomy RIGHT OOPHORECTOMY 1997 Right Oophorectomy CHOLECYSTECTOMY Cholecystectomy LIPOSUCTION 08/08/2023 - 09/06/2023 Medical History Medical History Date Comments Hx Other Medical 2006 Narcolepsy foll owed by Dr. 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., chemo Hx Other Medical narcolepsy Hx Other Medical neurocardiogeni c syncope Family History Medical History Relation Name Comments Hypertension Father Family history of hypertension - (Added by TW Conv) Diabetes Mother Family history of diabetes mellitus - (Added by TW Conv) Hyperlipidemia Mother High choleste rol - (Added by TW Conv) Hypertension Mother Family history of hypertension - (Added by TW Conv) Diabetes Other Family history of Diabetes mellitus; Thyroid disease Other Family histo ry of Thyroid disease; Relation Name Status Comments Father Mother Other Social History Tobacco Use Types Packs/Day Years [...] on file Legal Sex Female 9:13 AM BOX ORDER PERSON Gender Identity Female 05/11/2023 2:20 PM BOX ORDER PERSON Sexual Orientation Straight 05/11/2023 2: 20 PM BOX ORDER PERSON Obstetrics History Para Term AB IAB SAB Ectopic Multiple Livin g Live Births 6 Date Outcome GA Total Labor Labor/2nd/3rd Weight Sex Type Anes PTL Alycia A1 A5 Name Clin Last Filed Vital Signs Vital Sign Reading [...] cm (5' 5 ) 05/10/2024 10:58 AM BOX ORDER PERSON Body Mass Index 35.48 05/10/2024 10:58 AM BOX ORDER PERSON Plan of Treatment Health Maintenance Due Date Last Done Comments Albumin Creatinine Ratio, Urine 1979 Cervical Cancer Screening 1979 Depression Screening 1979 Hemoglobin A1C 1979 Hepatitis C Screening 1979 Dilated Eye Exam 1979 Foot Exam 1979 DTaP/Tdap/Td Vaccine (1 - Tdap) 08/25/1990 Varicella Vaccines (1 of 2 - 13+ 2-dose series) 08/25/1992 Hepatitis B Screening 08/25/1997 Regular Well Visit/Exam 18-64 08/25/1997 Pneumococcal vaccine <65 (2 of 2 - PCV) 11/27/2020 11/28/2019 Breast Cancer Screening-Mammogram 07/01/2024 07/02/2023 Lipid Panel 07/01/2024 07/02/2023, 03/11/2012 Influenza Vaccine (Season Ended) 2024 11/07/2022, 11/28/2019, 03/10/2018, Additional history exists eGFR 07/21/2025 07/21/2024, 08/08, 05/11/2023 HPV Vaccines Aged Out No longer eligi ble based on patient's age to complete this topic Procedures Procedure Name Priority Date/Time Associated Diagnosis [...] LIPID PANEL Routine 03/11/2012 11 :10 AM BOX ORDER PERSON from Last 3 Months or Most Recently [...] by Ana Sanchez M.D. SN: Report ID: [id number] Reading Location: [id number] Procedure Note Ana Sanchez MD - 07/21/2024 [...] by Ana Sanchez M.D. SN: Report ID: [id number] Reading Location: [id number] us Aretha Huff NP IMG CT PROCEDURES Final Result * eGFR (07/21/2024 [...] of Race in Diagnosing Kidney Disease, JASN 202). The CKD-EPI equation should not be used for patients with unstable renal function and has not been validated in children and those over 70. Current interpretive data was last reviewed 2021. Testing performed by: [address] [address] Blood 07/21/2024 9:44 PM CDT 07/21/2024 9:46 PM CDT us Johnnie Hassan DO LAB BLOOD ORDERABLES F inal Result [facility] [address] [facility] [place] [address] * Differential, auto (07/21/2024 9:44 PM CDT) Neutrophil abs 4.33 1.50 - 6.50 K/cumm Comment:Testing performed by : [address] [address] Imm gran abs 0.03 0.00 - 0.10 K/cumm [place] Comment:Testing performed by : [address] [address] Lymphocyte abs 2.32 0.80 - 3.30 K/cumm [place] Comment:Testing performed by : [address] [address] Monocyte abs 0.65 0.20 - 0.80 K/cumm [place] Comment:Testing performed by : [address] [address] Eosinophil abs 0.18 0.00 - 0.50 K/cumm [place] Comment:Testing performed by : [address] [address] Basophil abs 0.05 0.00 - 0.10 K/cumm [place] Comment:Testing performed by : [address] [address] Neutrophil pct 57.2 % [facility] Comment: Interpretive Data Percent cell count reference ranges are not reported, since discordance with absolute values may lead to misinterpretation of CBC data. Current Interpretive Data was last revised on 2017. Testing performed by: [address] [address] Imm gran pct 0.4 % [facility] Comment: Interpretive Data Percent cell count reference ranges are not reported, since discordance with absolute values may lead to misinterpretation of CBC data. Current Interpretive Data was last revised on 2017. Testing performed by: [address] [address] Lymphocyte pct 30.7 % [facility] Comment: Interpretive Data Percent cell count reference ranges are not reported, since discordance with absolute values may lead to misinterpretation of CBC data. Current Interpretive Data was last revised on 2017. Testing performed by: [address] [address] Monocyte pct 8.6 % [facility] Comment: Interpretive Data Percent cell count reference ranges are not reported, since discordance with absolute values may lead to misinterpretation of CBC data. Current Interpretive Data was last revised on 2017. Testing performed by: [address] [address] Eosinophil pct 2.4 % [facility] Comment: Interpretive Data Percent cell count reference ranges are not reported, since discordance with absolute values may lead to misinterpretation of CBC data. Current Interpretive Data was last revised on 2017. Testing performed by: [address] [address] Basophil pct 0.7 % [facility] Comment: Interpretive Data Percent cell count reference ranges are not reported, since discordance with absolute values may lead to misinterpretation of CBC data. Current Interpretive Data was last revised on 2017. Testing performed by: [address] [address] Blood 07/21/2024 9:44 PM CDT 07/21/2024 9:46 PM CDT Johnnie Sheikh Hassan DO LAB BLOOD ORDERABLES F inal Result [facility] [address] [facility] Department [place] [address] * CBC with auto differential (07/21/2024 9:44 PM CDT) Pathologist [facility] WBC 7.56 3.80 - 9.90 K/cumm Comment:Testing performed by : [address] [address] Hgb 13.1 11.9 - 15.5 g/dL [place] Comment:Testing performed by : [address] [address] Hct 38.3 35.6 - 45.5 % [facility] Comment:Testing performed by : [address] [address] Plt 257 150 - 400 K/cumm [facility] Comment:Testing performed by : [address] [address] MPV 9.8 9.1 - 12.3 fL [place] Comment:Testing performed by : [address] [address] RBC 4.43 3.90 - 5.20 M/cumm [facility] Comment:Testing performed by : [address] [address] MCV 86.5 81.3 - 96.4 fL [place] Comment:Testing performed by : [address] [address] MCH 29.6 27.1 - 33.3 pg [facility] PANG Comment:Testing performed by : [address] [address] MCHC 34.2 32.3 - 35.7 g/dL [facility] PANG Comment:Testing performed by : [address] [address] RDW CV 13.4 11.1 - 14.9 % [facility] Comment:Testing performed by : [address] [address] RDW SD 42.1 35.7 - 48.1 fL [place] Comment:Testing performed by : [address] [address] NRBC abs 0.00 0.00 - 0.01 K/cumm [facility] Comment:Testing performed by : [address], [address] Blood 07/21/2024 9:44 PM CDT 07/21/2024 9:46 PM CDT Johnnie Aguilar [facility] BLOOD ORDERABLES F inal Result Performing Organization Address [facility] Co de Phone Number [address] [place] [address] * ABO/Rh (07/21/2024 9:44 PM CDT) ABO/Rh A Positive Comment:Testing performed by : [address], [address] Blood 07/21/2024 9:44 PM CDT 07/21/2024 9:46 PM CDT Narrative [facility] - 07/21/2024 10:50 PM CDT Has the patient had Daratumumab or Isatuximab in the past 6 months?->Unknown [facility] BLOOD BANK TEST OR DERABLES Final Result Performing Organization Address [facility] Co de Phone Number [address] [phone] * Antibody screen (07/21/2024 9:44 PM CDT) [place], indirect, Gel Interpretation Negative ABSC Comment:Testing performed by : [address], [address] Blood 07/21/2024 9:44 PM CDT 07/21/2024 9:46 PM CDT Narrative [facility] - 07/21/2024 10:50 PM CDT Has the patient had Daratumumab or Isatuximab in the past 6 months?->Unknown Johnnie Hassan LAB BLOOD BANK TEST OR DERABLES Final Result [facility] [address] [facility] Department [place] [address] * Comprehensive metabolic panel (07/21/2024 9:44 PM CDT) Sodium 140 135 - 145 mmol/L Comment:Testing performed by : [address] [address] Potassium, pl 3.6 3.3 - 4.9 mmol/L [facility] Comment:Testing performed by : [address] [address] Chloride 104 97 - 110 mmol/L [facility] Comment:Testing performed by : [address] [address] CO2 24 22 - 32 mmol/L [facility] Comment:Testing performed by : [address] [address] Anion gap 12 2 - 15 mmol/L [facility] Comment:Testing performed by : [address] [address] BUN 10 6 - 25 mg/dL [facility] Comment:Testing performed by : [address] [address] Creatinine 0.83 0.60 - 1.10 mg/dL [facility] Comment:Testing performed by : [address] [address] Glucose 110 70 - 199 mg/dL M[facility] [...] was last revised 2022. Testing performed by: [facility], [address] [place] [address]., [address] Calcium 9.5 8.5 - 10.3 mg/dL [facility] Comment:Testing performed by : [address] [address] Bilirubin, total 0.3 0.1 - 1.2 mg/dL [facility] Comment:Testing performed by : [address] [address] Protein, pl 7.5 6.5 - 8.5 g/dL [facility] Comment:Testing performed by : [address] [address] Albumin 4.4 3.5 - 5.0 g/dL [facility] Comment:Testing performed by : [address] [address] Alk phos 63 40 - 130 Units/L [facility] Comment:Testing performed by : [address] [address] ALT 20 7 - 45 Units/L [facility] Comment:Testing performed by : [address] [address] AST 13 10 - 45 Units/L [facility] Comment:Testing performed by : [address] [address] Blood 07/21/2024 9:44 PM CDT 07/21/2024 9:46 PM CDT us Johnnie Hassan DO LAB BLOOD ORDERABLES F inal Result [facility] [address] [facility] Department [place] [address] * (ABNORMAL) Urinalysis reflex to microscopic and culture Urine, bladder (07/21/2024 9:42 PM CDT) Color, ur Red(A) Yellow Comment:Testing performed by : [address] [address] Clarity, ur Turbid(A) Clear [facility] Comment:Testing performed by : [address] [address] Specific gravity, ur 1.020 1.003 - 1.030 [facility] Comment:Testing performed by : [address] [address] pH, urine 7.0 [facility] Comment: Interpretive Data U rine pH is affected by diet, medications, systemic acid-base disturbances, and renal tubular function. pH may affect urinary stone formation. For example, urine pH below 6.0 may help reduce the tendency for calcium phosphate stones and pH greater than 6.0 may reduce the tendency for uric acid stone formation. Source: [facility] [place] Current Interpretive Data was last revised on 2017 Testing performed by: [address] [address] Protein, ur ql 2+(A) Negative [facility] Comment:Testing performed by : [address] [address] Glucose, ur ql Negative Negative [facility] Comment:Testing performed by : [address] [address] Ketones, ur Negative Negative [facility] Comment:Testing performed by : [address] [address] Bilirubin, ur Negative Negative [facility] Comment:Testing performed by : [address] [address] Blood, ur 3+(A) Negative [facility] Comment:Testing performed by : [address] [address] Urobilinogen, ur <2.0 <2.0 mg/dL [facility] Comment:Testing performed by : [address] [address] Nitrite, ur Negative Negative [facility] Comment:Testing performed by : [address] [address] Leukocyte esterase, ur 3+(A) Negative [facility] Comment:Testing performed by : [address] [address] UA reflex comment Reflex to microscopic UA will be performed. [facility] Comment:Testing performed by : [address] [address] Urine, bladder 07/21/2024 9: 42 PM CDT 07/21/2024 9:47 PM CDT Johnnie Hassan DO LAB MICROBIOLOGY - GEN ERAL ORDERABLES Final Result Performing Organization Address [facility] Co de Phone Number [facility] [address] [facility] Department [place] [address] * (ABNORMAL) Urinalysis, microscopic only (07/21/2024 9:42 PM CDT) WBC, ur >50(A) 0 - 5 /HPF Comment:Testing performed by : [address] [address] RBC, ur >50(A) 0 - 2 /HPF [facility] Comment:Testing performed by : [address] [address] Epithelial cells, squamous, ur >50(A) 0 - 5 /HPF [facility] Comment:Testing performed by : [address] [address] Bacteria, ur Trace(A) [facility] Comment:Testing performed by : [address] [address] Culture Reflex Comment Reflex to urine culture will be performed. [facility] Comment:Testing performed by : [address] [address] Urine, bladder 07/21/2024 9: 42 PM CDT 07/21/2024 9:47 PM CDT Johnnie Hassan DO LAB URINE ORDERABLES F inal Result Performing Organization Address [facility]/State/ZIP Co de Phone Number [place] [phone] [facility] Department [place] [address] * Urine culture Urine, bladder (07/21/2024 9:42 PM CDT) Report Final Report: Less than 100,000 colonies/mL (clinically insignificant growth based on current clinical standards) Comment:Testing performed by : [facility], [address] [place]., [address] Organism (CLINICALLY INSIGNIFICANT GROWTH [facility] Urine, bladder 07/21/2024 9: 42 PM CDT 07/22/2024 1:53 AM CDT Narrative [facility] - 07/24/2024 12:19 PM CDT Urine culture reflexed based upon urinalysis results. Testing performed by [facility] ([phone]) Johnnie Hassan DO LAB MICROBIOLOGY - GEN ERAL ORDERABLES Final Result Performing Organization Address City/State/[place] Co de Phone Number [facility] [address] [facility] Department [place] [address] * POCT hCG, urine (07/21/2024 9:41 PM [...] * Plasma lipid panel (03/11/2012 11:10 AM BOX ORDER PERSON) Cholesterol 178 100 - 200 mg/dl HISTORICAL RESULTS Triglycerides 85 10 - 150 mg/dl HISTORICAL RESULTS HDL 51 40 - 59 mg/dl HISTORICAL RESULTS LDL 110 60 - 129 mg/dl HISTORICAL RESULTS Plasma 03/11/2012 11:1 0 AM BOX ORDER PERSON Jose Newman MD LAB BLOOD ORDERABLES Final Resul t HISTORICAL RESULTS from Last 3 Months or Most Recently Relevant to Health Maintenance Insurance [employer] [facility] PPO [place] Care Teams Vp Treasurer Relationship Specialty Start Date End Date Curt Zhou MD [address] [address] PCP - General Internal Medicine 09/06/21 Christen Matias MD [address] [address] Referring Physician Allergy and Immunology 09/22/19
[2024-07-27 11:45] LABS: Basophils Percent Auto 0.8 % (0.2-1.2); Eosinophils Absolute Auto 0.1 K/mm3 (0-0.3); Eosinophils Percent Auto 2.5 % (0-4.4); Hematocrit 41.2 % (37.0-47.0); Hemoglobin 13.2 g/dL (12.0-15.0); Immature Granulocyte Absolute 0.01 K/mm3 (0.00-0.031); Immature Granulocyte Percent A 0.2 % (0-0.5); Lymphocytes Absolute Auto 1.75 K/mm3 (0.9-3.2); Lymphocytes Percent Auto 34.2 % (18.3-44.2); Mean Corpuscular Hemoglobin 29.1 pg (26-34); Mean Corpuscular Volume 90.9 fl (80-100); Mean Platelet Volume 9.7 fl (7.4-10.4); Monocytes Absolute Auto 0.4 K/mm3 (0.1-0.6); Monocytes Percent Auto 7.6 % (2.6-8.5); Neutrophils Absolute Auto 2.8 K/mm3 (1.3-6.7); Neutrophils Percent Auto 54.7 % (45.5-73.1); Platelet Count Result 297 k/mm3 (150-375); Red Blood Count 4.53 M/mm3 (4.2-5.4); Red Cell Distribution Width 13.3 % (11.5-14.5); White Blood Count 5.1 K/mm3 (4.5-10.0)
[2024-07-27 12:33] LABS: Thyroid Stimulating Hormone Reflex 0.606 uIU/mL (0.465-4.68)
[2024-07-28 07:04] LABS: Prolactin 11.6 ng/mL
== END 2024-07-27 10:51 | disposition home or self-care (01) ==
PROVIDERS: Visit Provider Nurse Practitioner Obstetrics & Gynecology
DX: N93.9 Abnormal uterine and vaginal bleeding, unspecified (principal); R10.2 Pelvic and perineal pain
CPT/HCPCS: 36415; 84146; 84443; 85025

== ENCOUNTER 2024-08-16 14:26 | Outpatient (CLI) | payer BC, SELFPAY ==
--- NOTE | ~2024-08-16 | US_ITS ---
Pelvic ultrasound. Clinical History: Abnormal uterine bleeding Technique: Realtime transabdominal and transvaginal scanning of the pelvis was performed. Color flow Doppler and Doppler spectral analysis were performed. Findings: The uterus is anteverted. The endometrial stripe has a thickness of 8 mm. Possible ill-def ined fibroid at the lower uterine segment measuring 2.5 cm in diameter. The right ovary measures 2.6 x 1.8 x 2.9 cm. No significant right ovarian or adnexal mass is seen. The left ovary measures 2.8 x 1.7 x 3.2 cm. No significant left ovarian or adnexal mass is seen. Vascular flow present in both ovaries on Doppler spectral analysis. There is no evidence of free fluid in the cul de sac. Impression: Possible 2.5 cm ill-defined lower uterine segment fibroid. Reviewed, dictated and finalized at [facility]. Impression: Possible 2.5 cm ill-defined lower uterine segment fibroid.
--- OUTSIDE RECORDS SUMMARY | 2024-08-16 15:55 | XMS_ITS | Patient Health Record ---
Author Organization [facility] [place] ([address]) Address [address] [place] [address] Care Team Providers Care Glass Belt Sander Name Role Phone Mary Seymour Unavailable [phone] Z[facility]-Migration, Provider Unavailable Unavailab le Allergies Allergen (clinical drug ingredient) Drug/Non Drug Allergy documented on EMR Reaction Allergy Type Onset Date Status naproxen Naproxen Angioedema Drug Allergy Active Penicillin anaphylaxis Drug Allergy Acti ve Reason For Referral No Information Medications Medication SIG (Take, Route, Frequency, Duration) Notes Start Date End Date Status VITAMIN D2 (OBSOLETE) 50,000 intl units 1 cap(s) orally once a week Active AEROCHAMBER MDI SPACER - MOUTHPIECE (ADULT) N/A DIRECTED PO PER ASTHMA ACTION PLAN for 30 DAY(S) *Please review for potential replacement for e-prescription and drug interaction check* Active AUVI-Q 0.3 mg DIRECTED INTRAMUSCULARLY ONCE 30 DAY(S) for 2 Active Ventolin HFA 108 (90 Base) MCG/ACT 2 puff(s) inhaled every 6 hours for 30 day(s) Active Xolair 150 MG 300 mg subcutaneously every 2 weeks Active predniSONE 20 MG 3 tab(s) orally once a day for 5 days Active SIT (TRADITIONAL) VARIABLE PER SCHEDULE SC PER SCHEDULE for TO BE DETERMINED *Please review for potential replacement for e-prescription and drug interaction check* Active VENTOLIN HFA 90 mcg/inh 2 puff(s) inhaled every 6 hours for 30 day(s) Active OLOPATADINE HYDROCHLORIDE 665 MCG/INH 2 SPRAY(S) INTRANASALLY 2 TIMES A DAY for 30 DAY(S) *Please review for potential replacement for e-prescription and drug interaction check* Active XYWAV 0.5 g/mL 6 mL orally Act lee NASAL WASHES N/A DIRECTED INTRANASALLY NEEDED *Please review for potential replacement for e-prescription and drug interaction check* Active AUVI-Q 0.3 mg as directed intramuscularly once for 30 day(s) Active Fluticasone Propionate 50 MCG/ACT 2 spray(s) intranasally bid for 30 day(s) Active Famotidine 40 MG 1 tab(s) orally once a day (at bedtime) Active Singulair 10 MG 1 tab(s) orally once a day for 30 day(s) Active XOLAIR 150 mg 300 mg subcutaneously every 2 weeks Active PREDNISONE 20 mg 3 tab(s) orally once a day for 5 days Active FAMOTIDINE 40 mg 1 tab(s) orally once a day (at bedtime) Active Xyrem 500 MG/ML 4.5 grams orally qhs Active SINGULAIR 10 mg 1 tab(s) orally once a day for 30 day(s) Active Nuvigil 250 MG 1 tab(s) orally once a day Active PREDNISONE 20 mg 2 tab(s) orally once a day for 5 day(s) 12/08/2022 Active Probiotic Formula 1-250 BILLION-MG 1 cap(s) orally once a day Active FLUTICASONE PROPIONATE 50 mcg/inh 2 spray(s) intranasally bid for 30 day(s) Active VENTOLIN HFA 90 mcg/inh 2 puff(s) inhaled every 6 hours for 30 days Active Multivitamin MULTIPLE VITAMINS 1 CAP(S) ORALLY ONCE A DAY *Please review and pick correct strength-formula tion from [employer] options. If intended option is not shown, discontinue and re-order from Quick Search* Active NUVIGIL 250 mg 1 tab(s) orally once a day Active Vitamin D (Ergocalciferol) 1.25 MG (84564 UT) 1 cap(s) orally once a week Active XYREM 500 mg/mL 4.5 grams orally qhs Active Ritalin 20 MG 1 tab(s) orally Qday Active CETIRIZINE HYDROCHLORIDE 10 mg 2 tabs orally bid for 30 day(s) Active PATADAY 0.2% 1 gtt in each affected eye once a day for 30 day(s) Active RITALIN 20 mg 1 tab(s) orally Qday Active MULTIVITAMIN Multiple Vitamins 1 cap(s) orally once a day Active PROBIOTIC FORMULA - 1 cap(s) orally once a day Active Trelegy Ellipta 200 MCG-62.5 MCG-25 MCG/INH INHALE 1 PUFF BY MOUTH EVERY DAY for 30 *Please review and pick correct strength-formula tion from [employer] options. If intended option is not shown, discontinue and re-order from Quick Search* Active amLODIPine Besylate 2.5 MG 1 tab(s) orally once a day for 30 day(s) Not-Taking Singulair 10 MG 1 tab(s) orally once a day for 30 day(s) Active predniSONE 20 MG 2 tab(s) orally once a day for 5 day(s) 12/08/2022 Active Ventolin HFA 108 (90 Base) MCG/ACT 2 puff(s) inhaled every 6 hours for 30 days Active AMLODIPINE 2.5 mg 1 tab(s) orally once a day for 30 day(s) Not-Taking Auvi-Q 0.3 MG/0.3ML DIRECTED INTRAMUSCULARLY ONCE 30 DAY(S) for 2 Active SINGULAIR 10 mg 1 tab(s) orally once a day for 30 day(s) Active Xywav 0.5 G/ML 6 ML ORALLY *Please review and pick correct strength-formula tion from [employer] options. If intended option is not shown, discontinue and re-order from Quick Search* Active Pataday 0.2 % 1 gtt in each affected eye once a day for 30 day(s) Active Auvi-Q 0.3 MG/0.3ML as directed intramuscularly once for 30 day(s) Active TRELEGY ELLIPTA 200 mcg-62.5 mcg-25 mcg/inh INHALE 1 PUFF BY MOUTH EVERY DAY for 30 Active Cetirizine HCl 10 MG 2 tabs orally bid for 30 day(s) Active Immunizations Vaccine Route Administration Date Status Comme nts Fluzone Quadrivalent Unknown 12/15/2016 Administered Fluzone Quadrivalent Unknown 12/25/2015 Administered NOC Flucelevax Quadrivalent IM Intramuscular 11/28/2019 Administered NOC Flucelevax Quadrivalent Unknown 12/16/2019 Administered NOC Fluzone Quadrivalent Unknown 01/07/2018 Administere d NOC Fluzone Quadrivalent Unknown 03/10/2018 Administere d Pneumovax 23 IM Intramuscular 11/28/2019 Administered Social History Tobacco Use: Social History Observation Description Date Details (start date - stop date) Never Smoker NA - NA Smoking Smart Form: Question Answer Notes Are you a: never smoker Problems Problem Type SNOMED Code ICD Code Onset Dates Problem Status W/U Status Risk Notes Problem Vitamin D deficiency (94228772) Vitamin D deficiency, unspecified (E55.9) Active confirmed Problem Allergy to penicillin (11707481) Allergy status to penicillin (Z88.0) Active confirmed Problem Idiopathic urticaria (42285838) Idiopathic urticaria (L50.1) Active confirmed Problem Chronic allergic conjunctivitis (67636541) Other chronic allergic conjunctivitis (H10.45) Active confirmed Problem Impacted cerumen (06259332) Impacted cerumen, bilateral (H61.23) Active confirmed Problem Allergic rhinitis caused by pollen (disorder) (38419636) Allergic rhinitis due to pollen (J30.1) Active confirmed Problem Allergic rhinitis caused by animal hair and dander (857255108066583) Allergic rhinitis due to animal (cat) (dog) hair and dander (J30.81) Active confirmed Problem Allergic rhinitis (88278269) Other allergic rhinitis (J30.89) Active confirmed Problem Chronic rhinitis (46353355) Chronic rhinitis (J31.0) Active confirmed Problem Uncomplicated moderate persistent asthma (401688132) Moderate persistent asthma, uncomplicated (J45.40) Active confirmed Problem Uncomplicated severe persistent asthma (426606406) Severe persistent asthma, uncomplicated (J45.50) Active confirmed Problem Ingestion dermatitis caused by food (474745326) Dermatitis due to ingested food (L27.2) Active confirmed Problem Myalgia (70606754) Myalgia (M79.1) Active confirmed Problem Cough (13625658) Cough (R05) Active confirmed Problem Adverse reaction to drug (03674507) Adverse effect of penicillins, subsequent encounter (T36.0X5D) Active confirmed Problem Non-steroidal anti-inflammatory drug adverse reaction (931930010) Adverse effect of other nonsteroidal anti-inflammatory drugs [NSAID], subsequent encounter (T39.395D) Active confirmed Problem Angioneurotic edema (31607929) Angioneurotic edema, subsequent encounter (T78.3XXD) Active confirmed Problem Allergic rhinitis caused by pollen (disorder) (35240417) Allergic rhinitis due to pollen (J30.1) Active confirmed Problem Allergic rhinitis caused by animal hair and dander (412929567379804) Allergic rhinitis due to animal (cat) (dog) hair and dander (J30.81) Active confirmed Problem Allergic rhinitis (12730916) Other allergic rhinitis (J30.89) Active confirmed Problem Uncomplicated severe persistent asthma (016228002) Severe persistent asthma, uncomplicated (J45.50) Active confirmed Problem Acute severe exacerbation of severe persistent asthma (454368829) Severe persistent asthma with (acute) exacerbation (J45.51) Active confirmed Problem Chronic allergic conjunctivitis (38963974) Other chronic allergic conjunctivitis (H10.45) Active confirmed Problem Idiopathic urticaria (04651540) Idiopathic urticaria (L50.1) Active confirmed Problem Allergy to seafood (04730725) Allergy to seafood (Z91.013) Active confirmed Problem Acute upper respiratory infection (86625900) Acute upper respiratory infection, unspecified (J06.9) Active confirmed Problem Elevated blood pressure reading without diagnosis of hypertension (939320870) Elevated blood-pressure reading, without diagnosis of hypertension (R03.0) Active confirmed Problem History of systemic steroid therapy (116947384218826) Personal history of systemic steroid therapy (Z92.241) Active confirmed Problem Suspected disease caused by Severe acute respiratory coronavirus 2 (situation) (253437636) Encounter for screening for COVID-19 (Z11.52) Active confirmed Encounters Encounter Location Date Provider Diagnosis [facility] [place] [address] [place] [address] 08/22/2023 Provider ZZ-Migration [facility] [address] [place] [address] 09/15/2023 Mary Seymour Plan Of Treatment Pending Test Test Name Order Date COVID-19 TESTING (Hospital-based PCR) Insurance Providers Payer Name Payer Address Payer Phone Subscriber Number Group Number Insured Name Patient Relationship to Insured Coverage Start Date Coverage End Date [facility] [id number] [place] [address] [id number] Chanell Storm Self - patient is the insured [employer] [address] [place] [address] [address] [place] [address] [id number] Chanell Storm Self - patient is the insured Medical (General) History Medical History History ICD Code Severe persistent asthma, uncomplicated Idiopathic urticaria Angioedema Allergic rhinitis due to pollen Allergic rhinitis due to animal (cat) (d og) hair and dander Other allergic rhinitis Other chronic allergic conjunctivitis Allergy status to penicillin Personal history of systemic steroid the rapy Vitamin D deficiency, unspecified Acute upper respiratory infection, unspe cified Narcolepsy Angioneurotic edema, subsequent encounte r Allergy to seafood Adverse effect of other nons teroidal anti-inflammatory drugs [NSAID], subsequent encounter Adverse effect of penicillins, subsequen t encounter Myalgia Surgical History Surgery Date(Month/Year) Lymphnodes Removed right arm 05/07/1989 Cyst removed from ovary 04/12/1997 Colposcopy procedure 05/16/2002 LEEP Procedure 05/17/2003 IUD removal 05/09/2003 Section 09/01/2007 07/20/2008 L Wrist Ligament Repair 04/2018 Hospitalization History Reason Date(Month/Year) Vasovagal/Hypotension 09/2017 Narcolepsy attack
--- OUTSIDE RECORDS SUMMARY | 2024-08-16 15:55 | XMS_ITS ---
Author Organization [facility] [place] ([address]) Address [address] [place] [address] Care Team Providers Care Selenium Plant Operator Name Role Phone Mary Seymour Unavailable [phone] [facility]-Migration, Provider Unavailable Unavailab le Allergies Allergen (clinical drug ingredient) Drug/Non Drug Allergy documented on EMR Reaction Allergy Type Onset Date Status naproxen Naproxen Angioedema Drug Allergy Active Penicillin anaphylaxis Drug Allergy Acti ve REASON FOR [facility]ISIT [facility] Conversion Encounter Medications Medication SIG (Take, Route, Frequency, Duration) Notes Start Date End Date Status AEROCHAMBER MDI SPACER - MOUTHPIECE (ADULT) N/A DIRECTED PO PER ASTHMA ACTION PLAN for 30 DAY(S) *Please review for potential replacement for e-prescription and drug interaction check* Active Ventolin HFA 108 (90 Base) MCG/ACT 2 puff(s) inhaled every 6 hours for 30 days Active Auvi-Q 0.3 MG/0.3ML DIRECTED INTRAMUSCULARLY ONCE 30 DAY(S) for 2 Active Xywav 0.5 G/ML 6 ML ORALLY *Please review and pick correct strength-formula tion from [facility] options. If intended option is not shown, discontinue and re-order from Quick Search* Active Auvi-Q 0.3 MG/0.3ML as directed intramuscularly once for 30 day(s) Active Ventolin HFA 108 (90 Base) MCG/ACT [...] for e-prescription and drug interaction check* Active OLOPATADINE HYDROCHLORIDE 665 MCG/INH 2 SPRAY(S) INTRANASALLY 2 TIMES A DAY for 30 DAY(S) *Please review for potential replacement for e-prescription and drug interaction check* Active NASAL WASHES N/A DIRECTED INTRANASALLY NEEDED *Please review for potential replacement for e-prescription and drug interaction check* Active Fluticasone Propionate 50 MCG/ACT 2 spray(s) intranasally bid for 30 day(s) Active Famotidine 40 MG 1 tab(s) orally once a day (at bedtime) Active Singulair 10 MG 1 tab(s) orally once a day for 30 day(s) Active Cetirizine HCl 10 MG 2 tabs orally bid for 30 day(s) Active Xyrem 500 MG/ML 4.5 grams orally qhs Active Nuvigil 250 MG 1 tab(s) orally once a day Active Probiotic Formula 1-250 BILLION-MG 1 cap(s) orally once a day Active Multivitamin MULTIPLE VITAMINS 1 CAP(S) ORALLY ONCE A DAY *Please review and pick correct strength-formula tion from [employer] options. If intended option is not shown, discontinue and re-order from Quick Search* Active Pataday 0.2 % 1 gtt in each affected eye once a day for 30 day(s) Active Vitamin D (Ergocalciferol) 1.25 MG (29362 UT) 1 cap(s) orally once a week Active Ritalin 20 MG 1 tab(s) orally Qday Active Trelegy Ellipta 200 MCG-62.5 MCG-25 MCG/INH INHALE 1 PUFF BY MOUTH EVERY DAY for 30 *Please review and pick correct strength-formula tion from [employer] options. If intended option is not shown, discontinue and re-order from Quick Search* Active amLODIPine Besylate 2.5 MG 1 tab(s) orally once a day for 30 day(s) Not-Taking Singulair 10 MG 1 tab(s) orally once a day for 30 day(s) Active predniSONE 20 MG 2 tab(s) orally once a day for 5 day(s) 12/08/2022 Active Encounters Encounter Location Date Provider Diagnosis [facility] - [address] [address] 08/22/2023 Provider ABBIE-Migration Plan Of Treatment No Information Progress Notes * Chanell VASQUES MDOB: (43 yo F)Acc No.[id number]:08/22/2023 Patient: Speedy KARENGEE Chanell El Provider: Aamir dunne Migration :1980 A ge:42 Y S ex:Female Date:08/22/2023 Address:[address] [place], [place] [id number] Subjective: * Chief Complaints: * 1 . [facility]. * Medical History: * Medications: T aking Vitamin D (Ergocalciferol) 1.25 MG (14732 UT) Capsule 1 cap(s) orally once a week , Taking Ritalin 20 MG Tablet 1 tab(s) orally Qday , Taking Probiotic Formula 1-250 BILLION-MG Capsule 1 cap(s) orally once a day , Taking Multivitamin MULTIPLE VITAMINS CAPSULE 1 CAP(S) ORALLY ONCE A DAY , Notes to Pharmacist: *Please review and pick correct strength-formulation from [facility] options. If intended option is not shown, discontinue and re-order from Quick Search*, Taking Xyrem 500 MG/ML Solution 4.5 grams orally qhs , Taking Nuvigil 250 MG Tablet 1 tab(s) orally once a day , Taking Pataday 0.2 % Solution 1 gtt in each affected eye once a day , Taking Cetirizine HCl 10 MG Tablet 2 tabs orally bid , Taking Singulair 10 MG Tablet 1 tab(s) orally once a day , Taking Famotidine 40 MG Tablet 1 tab(s) orally once a day (at bedtime) , Taking Fluticasone Propionate 50 MCG/ACT Suspension 2 spray(s) intranasally bid , Taking NASAL WASHES N/A 1 QUART OF STERILIZED TAP WATER OR DISTILLED WATER, 1 TSP NACL, 1 PINCH OF BAKING SODA DIRECTED INTRANASALLY NEEDED , Notes to Pharmacist: *Please review for potential replacement for e-prescription and drug interaction check*, Taking OLOPATADINE HYDROCHLORIDE 665 MCG/INH SPRAY 2 SPRAY(S) INTRANASALLY 2 TIMES A DAY , Notes to Pharmacist: *Please review for potential replacement for e-prescription and drug interaction check*, Taking SIT (TRADITIONAL) VARIABLE SEE RECORD PER SCHEDULE SC PER SCHEDULE , Notes to Pharmacist: *Please review for potential replacement for e-prescription and drug interaction check*, Taking predniSONE 20 MG Tablet 3 tab(s) orally once a day , Taking Xolair 150 MG Solution Reconstituted 300 mg subcutaneously every 2 weeks , Taking Ventolin HFA 108 (90 Base) MCG/ACT Aerosol Solution 2 puff(s) inhaled every 6 hours , Taking AEROCHAMBER MDI SPACER - MOUTHPIECE (ADULT) N/A SPACER FOR MDI USE DIRECTED PO PER ASTHMA ACTION PLAN , Notes to Pharmacist: *Please review for potential replacement for e-prescription and drug interaction check*, Taking Auvi-Q 0.3 MG/0.3ML Solution Auto-injector as directed intramuscularly once , Taking Xywav 0.5 G/ML LIQUID 6 ML ORALLY , Notes to Pharmacist: *Please review and pick correct strength-formulation from [employer] options. If intended option is not shown, discontinue and re-order from Quick Search*, Taking Auvi-Q 0.3 MG/0.3ML Solution Auto-injector DIRECTED INTRAMUSCULARLY ONCE 30 DAY(S) , Taking Ventolin HFA 108 (90 Base) MCG/ACT Aerosol Solution 2 puff(s) inhaled every 6 hours , Taking predniSONE 20 MG Tablet 2 tab(s) orally once a day , Taking Singulair 10 MG Tablet 1 tab(s) orally once a day , Taking Trelegy Ellipta 200 MCG-62.5 MCG-25 MCG/INH POWDER INHALE 1 PUFF BY MOUTH EVERY DAY , Notes to Pharmacist: *Please review and pick correct strength-formulation from [employer] options. If intended option is not shown, discontinue and re-order from Quick Search*, Not-Taking/PRN amLODIPine Besylate 2.5 MG Tablet 1 tab(s) orally once a day * Allergies: N aproxen: Angioedema - Allergy, Penicillin: anaphylaxis - Allergy. Objective: * Vitals: Assessment: Plan: * Treatment: * Billing Information: * Visit Code: * Procedure Codes: * Electronic signature of Gabino Cash on 08/16/2024 at 03:54 PM CDT Sign off status: Pending * Provider: Aamir dunne Migration Date: 0 08/22/2023 Generated for Radu funk/La/Silver on: 0 08/16/2024 03:54 PM CDT
--- OUTSIDE RECORDS SUMMARY | 2024-08-16 15:55 | XMS_ITS | Clinical Summary ---
Author Organization [facility] Address [address] [place] [address] Phone Care Team Providers Care Practice Assistant Name Role Phone Unavailable Primary Care Provider [...]
== END 2024-08-16 14:27 | disposition home or self-care (01) ==
PROVIDERS: Visit Provider Nurse Practitioner Obstetrics & Gynecology
DX: N93.9 Abnormal uterine and vaginal bleeding, unspecified (principal); R10.2 Pelvic and perineal pain
CPT/HCPCS: 76830; 76856